=== PATIENT | female | born 1935 | race Caucasian/White ===

== ENCOUNTER 2018-07-13 17:16 | Inpatient (IN) | payer MEDICARE, OTHER ==
[2018-07-13] MEDS ORDERED: Ondansetron PF 4 MG/2 ML Vial ONE (17:26)
[2018-07-13] MEDS ORDERED: Rocuronium Bromide 10 MG/ML (10ML VIAL) ONE (17:37)
[2018-07-13 17:56] LABS: #Lymphocytes 0.9 thou/uL (1.20-3.40); #Monocytes 0.6 thou/uL (0.11-0.59); #Neutrophils 7.2 thou/uL (1.40-6.50); %Basophils 0.1 % (0.0-1.0); %Eosinophils 0.2 % (0.0-10.0); %Lymphocytes 10.2 % (21.0-51.0); %Monocytes 7.3 % (0.0-10.0); %Neutrophils 82.1 % (42.0-75.0); Hemoglobin 12.9 g/dL (12.0-16.0); Mean Corpuscular HGB CONC 31.4 g/dL (32.0-36.0); Mean Corpuscular Hemoglobin 29.1 pg (27.0-31.0); Mean Corpuscular Volume 92.5 fL (78.0-98.0); Mean Platelet Volume 9.1 fL (7.4-10.4); Platelet Count 144 thou/uL (130-400); RBC Distribution Width 13.1 % (11.5-14.5); Red Blood Cell (RBC) Count 4.45 mill/uL (4.20-5.40); White Blood Cell (WBC) Count 8.8 thou/uL (4.8-10.8)
[2018-07-13 18:02] LABS: INR-International Normal Ratio 1.3; Prothrombin Time 16.1 SEC (12.0-14.7)
[2018-07-13 18:03] LABS: PTT 30.1 SEC (22.9-36.1)
[2018-07-13 18:16] LABS: Magnesium 2.4 mg/dL (1.6-2.6); Phosphorus 3.3 mg/dL (2.3-4.7)
[2018-07-13 18:21] LABS: ALT (SGPT) 52 U/L (8-55); AST (SGOT) 27 U/L (5-34); Alkaline Phosphatase 156 U/L (40-150); Anion Gap 16 mmol/L (10-20); BUN (Urea Nitrogen) 37 mg/dL (9.8-20.1); Bilirubin, Total 1.2 mg/dL (0.2-1.2); Calc. Creatinine Clearance 0 mL/min (70-130); Calcium 9.3 mg/dL (7.8-10.44); Carbon Dioxide 25 mmol/L (23-31); Chloride 116 mmol/L (98-107); Estimated GFR-MDRD 46; Globulin 3.1 g/dL (2.4-3.5); Glucose 354 mg/dL (83-110); Lipase 50 U/L (8-78); Potassium 4.1 mmol/L (3.5-5.1); Protein, Total 7.1 g/dL (6.0-8.3); Sodium 153 mmol/L (136-145)
[2018-07-13 18:27] LABS: Bilirubin Small (Negative); Blood, Urine Trace (Negative); Clarity CLOUDY (Clear); Glucose, Urine (Dipstick) 500 mg/dL (Negative); Leukocyte Negative (Negative); Nitrite Negative (Negative); Protein, Urine (Dipstick) Trace mg/dL (Neg-Trace); Specific Gravity, Urine 1.026 (1.002-1.036)
[2018-07-13 18:29] LABS: Bacteria/HPF None Seen HPF (None Seen); RBC/HPF 0-3 HPF (0-3); WBC/HPF 0-3 HPF (0-3)
[2018-07-13] MEDS ORDERED: Piperacillin/Tazobactam 4.5 GM VIAL ONE (18:29)
[2018-07-13 18:31] LABS: Pathc Cast-AUWi Flag 26.16 (0-2.49)
[2018-07-13 18:36] LABS: Actual Bicarbonate (HCO3a) 23.8 mEq/L (22-28); Analyzer IN Cardio ER; Base Excess (BEa) -1.1 mEq/L (-2.0 to +3.0); CO2 Tension 40.5 mmHg (35.0-45.0); Calcium, Ionized 1.15 mmol/L (1.12-1.30); Carboxyhemoglobin (COHb) 0.2 gm% (0.0-3.0); Hemoglobin (Hb) 11.8 g/dL (12.0-16.0); O2 Tension (PaO2) 212.2 mmHg (> 60.0); Potassium - ABG Lab 3.62 mmol/L (3.70-5.30); pH, Arterial 7.39 (7.35-7.45)
[2018-07-13 18:43] LABS: Hyaline Casts/LPF 0-3 HYALINE CAST LPF (0-3 Hyaline); Other Casts/LPF None Seen LPF (0-3 Hyaline)
--- NOTE | 2018-07-13 18:45 | CT ---
CT OF BRAIN PERFORMED WITHOUT CONTRAST ENHANCEMENT: 07/13/18 HISTORY: Fall with head injury. Bruising to face. COMPARISON: A 05/02/09 study. There is generalized ventricular and sulcal prominence. There is no signs of intracerebral hemorrhage or extra-axial fluid collections. Chronic white matter changes are noted. Mastoid air cells are clear. There is mucosal disease within the right sphenoid air cells and some mi nimal changes of ethmoid air cells. Also minimal changes on the left side of the sphenoid air cells. IMPRESSION: No acute intracranial abnormalities. POS: [facility]
--- NOTE | 2018-07-13 18:48 | CT ---
CT OF CERVICAL SPINE PERFORMED WITHOUT CONTRAST ENHANCEMENT: 07/13/18 HISTORY: Fall with neck injury. The bones are demineralized. The vertebral bodies are normal in height. Degenerative osteophytes are seen without significant disc narrowing. Degenerative facet changes are present. No evidence of any s ignificant canal or foraminal stenosis. There is no CT evidence for fracture. Lung apices show emphys ematous change. IMPRESSION: No CT evidence of fracture of the cervical spine. POS: [facility]
--- NOTE | 2018-07-13 19:08 | RAD ---
PORTABLE CHEST: History: Post intubation. Comparison: 08-24-17 FINDINGS: Heart size is enlarged with post op sternotomy change and valve replacement. Endotracheal and NG tube s are in satisfactory position. There is somewhat asymmetric right parahilar and lower lobe parenchym al markings present. There are chronic lung changes also seen. IMPRESSION: 1. Cardiomegaly with chronic lung change. 2. Slightly increased parahilar markings on the right. This could indicate an asymmetric edema patter n or pneumonia. 3. Endotracheal and NG tubes in fairly satisfactory position. POS: [facility]
[2018-07-13] MEDS ORDERED: fentaNYL Citrate/PF 2,000 MCG in Sodium Chloride 0.9% 60 ML IV SCH (19:15)
[2018-07-13 19:27] LABS: ALV-art Gradient 93.675 (0-20); Puncture Site RRA
[2018-07-13] MEDS ORDERED: Fentanyl BOLUS 250 ML IVPB PRN (20:41)
[2018-07-13] MEDS ORDERED: Morphine 2 MG/ML SYRINGE SLOW IVP PRN (20:41)
[2018-07-13] MEDS ORDERED: Lorazepam 2 MG/ML VIAL SLOW IVP PRN (20:41)
[2018-07-13] MEDS ORDERED: Propofol BOLUS 1,000 MG/100 ML VIAL IV PRN (20:41)
[2018-07-13] MEDS ORDERED: Fentanyl CADD 250 ML IVPB SCH (20:41)
[2018-07-13] MEDS ORDERED: Propofol 1,000 MG/100 ML VIAL IV PRN (20:41)
[2018-07-13] MEDS: Sodium Chloride 0.9% 1,000 ML IV SCH (20:50)
[2018-07-13 21:18] VITALS: BMI 21.1
[2018-07-13] MEDS ORDERED: Ondansetron ODT 4 MG TAB PO PRN (22:48)
[2018-07-13] MEDS ORDERED: Acetaminophen 325 MG TAB PO PRN (22:48)
[2018-07-13] MEDS ORDERED: Ondansetron PF 4 MG/2 ML Vial IVP PRN (22:48)
[2018-07-13] MEDS ORDERED: Ventilator Sedation Protocol 1 EACH FS ONE (22:50)
[2018-07-14] MEDS: Piperacillin/Tazobactam 3.375 GM in Sodium Chloride 0.9% 100 ML IVPB SCH ×3 (02:07→17:48)
[2018-07-14] MEDS ORDERED: Dextrose 5% in Water 1,000 ML IV PRN (03:38)
[2018-07-14] MEDS ORDERED: HumaLOG 300 UNITS/3 ML VIAL SC PRN (03:38)
[2018-07-14] MEDS ORDERED: Dextrose 50% Abboject 50 ML SYRINGE SLOW IVP PRN (03:38)
[2018-07-14] MEDS: Sodium Chloride 0.9% 1,000 ML IV SCH (05:56)
[2018-07-14 06:10] LABS: Anion Gap 16 mmol/L (10-20); BUN (Urea Nitrogen) 35 mg/dL (9.8-20.1); Calc. Creatinine Clearance 44 mL/min (70-130); Calcium 8.4 mg/dL (7.8-10.44); Carbon Dioxide 19 mmol/L (23-31); Chloride 123 mmol/L (98-107); Estimated GFR-MDRD 60; Glucose 184 mg/dL (83-110); Potassium 4.1 mmol/L (3.5-5.1); Sodium 154 mmol/L (136-145)
[2018-07-14 06:15] LABS: #Eosinphils 0.1 thou/uL (0.0-0.7); #Lymphocytes 0.7 thou/uL (1.20-3.40); #Monocytes 0.8 thou/uL (0.11-0.59); #Neutrophils 7.3 thou/uL (1.40-6.50); %Basophils 0.2 % (0.0-1.0); %Eosinophils 0.6 % (0.0-10.0); %Lymphocytes 7.5 % (21.0-51.0); %Monocytes 9.2 % (0.0-10.0); %Neutrophils 82.6 % (42.0-75.0); Mean Corpuscular HGB CONC 31.7 g/dL (32.0-36.0); Mean Corpuscular Hemoglobin 29.2 pg (27.0-31.0); Mean Platelet Volume 9.3 fL (7.4-10.4); Platelet Count 95 thou/uL (130-400); Platelet Morphology Comment Appears Decreased; RBC Distribution Width 13.2 % (11.5-14.5); Red Blood Cell (RBC) Count 3.76 mill/uL (4.20-5.40); White Blood Cell (WBC) Count 8.8 thou/uL (4.8-10.8)
--- NOTE | 2018-07-14 07:08 | HP ---
PRIMARY CARE DOCTOR: Dr. Hoang Wolf. CODE STATUS: DNR. I discussed with at bedside. TIME OF EVALUATION: 11:15 p.m. CHIEF COMPLAINT: Change in mental status. HISTORY OF PRESENT ILLNESS: An 82-year-old female patient with past medical history of diabetes, also dementia, came from the [facility], as per her , he reported that the patient has been having gradual worsening change in the mentation, she was also found to have saturation up to 90%. Symptoms were severe, with no clear triggers, no alleviating factors. It seems that the patient has been aspirated, and he believes that she has been rather getting worse for the past 2 months, especially in the past week. Symptoms have been severe. REVIEW OF SYSTEMS: Unable to obtain. The patient is intubated and sedated. PAST MEDICAL HISTORY: Positive for previous stroke, hyperlipidemia, diabetes, Alzheimer's, and hypertension. SURGICAL HISTORY: Bypass. PSYCHIATRIC HISTORY: No history of suicidal ideation. No history of homicidal ideation. History of dementia. FAMILY HISTORY: Reviewed and noncontributory to current presentation. KNOWN ALLERGIES: No known drug allergies. REPORTED MEDICATIONS: 1. Fluoxetine. 2. Metoprolol. 3. . 4. Eliquis. 5. Klor-Con 10. 6. Memantine. 7. Rivastigmine. 8. Amiodarone. 9. Lovastatin. 10. Donepezil. 11. Furosemide. 12. Glipizide. 13. Losartan. PHYSICAL EXAMINATION: VITAL SIGNS: On presentation, blood pressure 172/107 with heart rate 66, respiratory rate was 18, the oxygen saturation was 93 on room air. GENERAL APPEARANCE: The patient is intubated and sedated. HEENT: Eyes, normal conjunctivae. Moist oral mucosa. Anicteric. No JVD. RESPIRATORY: Bilateral air entry. Scattered rales. Scattered wheezing. Symmetric expansion. CARDIOVASCULAR: Normal rate, regular rhythm. No murmurs. No gallops. No edema. ABDOMEN: Soft. Normal bowel sounds. MUSCULOSKELETAL: Baseline range of motion and strength. No tenderness. SKIN: Warm, intact. No pallor. No rash. No redness. Peripheral pulses are present. Capillary refill seems to be intact. NEURO: The patient is intubated and sedated. Unable to fully explore. IMAGING STUDIES: EKG was reviewed. The patient has sinus rhythm with first-degree AV block at a rate of 63, , QRS 114, QT corrected 501. No specific ST and T-wave abnormalities. Prolonged QT. Brain CT was done. The patient has no acute intracranial abnormalities. Chest x-ray was done. The patient has cardiomegaly with chronic lung changes. There is slightly increased perihilar markings of the right and they indicated asymmetric edema pattern or pneumonia. Endotracheal and NG tube are in fairly satisfactory position. Cervical spine CT; the patient has no evidence of fracture of the cervical spine. LABORATORY DATA: Labs were reviewed. The patient has white count 8.8, hemoglobin 12.9, MCV 92.5, platelet count 144. Coagulation; PT 16.1, INR 1.3, PTT 30.1. Blood gas, pH 7.39, pCO2 of 40.5, pO2 of 212. Chemistry; sodium 153, potassium 4.1, chloride 25, anion gap 16, BUN 37, creatinine 1.14, GFR 26, glucose 254. LFTs were normal. Alkaline phosphatase 156. Troponin was negative. Urine was done, was negative for white counts. ASSESSMENT AND PLAN: The patient will be placed in the hospital with following medical problems: 1. Pneumonia, possible aspiration secondary to gram-negative aerobes and anaerobes. The patient has been started on antibiotics that we will continue for now, we will adjust treatment as per sensitivity. 2. Acute hypoxic respiratory failure. The patient was intubated due to this problem. We will continue with ventilatory support. We will treat the underlying condition, may be secondary to pneumonia. 3. Acute encephalopathy. The patient has had change in mentation that has been gradually getting worse, especially over the past week, likely due to underlying infection, as of now she is intubated, this will need to be reassessed once patient is extubated. 4. Underlying dementia and these add bad prognosis to the patient's care and treatment, as per , the patient has continued to deteriorate progressively, especially over the past 2 months, if the patient does not recover well, would benefit from palliative care consultation. 5. Hypernatremia with sodium 153, this could be another reason for acute encephalopathy, the patient needed IV bolus resuscitation due to sepsis, we will adjust fluids once blood pressure is better controlled. 6. Hyperchloremia, we will adjust fluids. 7. Acute kidney injury. The patient has a GFR of 46 and creatinine 1.14. The patient might have had chronic kidney disease that we do not have a previous value to compare. We will monitor kidney function, we will adjust treatment as needed. 8. Uncontrolled diabetes. Glucose 254. As per her , she was not taking medications for diabetes on regular basis. We will place the patient on sliding scale. 9. Deep venous thrombosis prophylaxis. Critical care time more than 40 minutes spent at bedside, family counseling, and stabilization of the patient. Job ID: [id number]
[2018-07-14 07:28] LABS: Actual Bicarbonate (HCO3a) 22.1 mEq/L (22-28); Base Excess (BEa) -2.2 mEq/L (-2.0 to +3.0); CO2 Tension 36.2 mmHg (35.0-45.0); Calcium, Ionized 1.18 mmol/L (1.12-1.30); Carboxyhemoglobin (COHb) 1.2 gm% (0.0-3.0); Hemoglobin (Hb) 10.4 g/dL (12.0-16.0); Potassium - ABG Lab 3.45 mmol/L (3.70-5.30)
[2018-07-14 07:30] LABS: O2 Tension (PaO2) 59.8 mmHg (> 60.0); Puncture Site RR
--- NOTE | 2018-07-14 09:02 | CON ---
DATE OF CONSULTATION: HISTORY OF PRESENT ILLNESS: Julia Vazquez is an 82-year-old severely demented female, from the residential in [place]. I am told her primary care physician is at [facility]. She sees her Cardiology there too. She was here in the hospital in July of 2017. She came in last night with shortness of breath, abnormal chest x-ray, was intubated. Now in the ICU, on the vent. at the bedside, states as above. She sees physicians at [facility], but not in the last four years. She is in a residential, unable to talk and unable to walk now for several months. PAST MEDICAL HISTORY: Pertinent for well outlined congestive heart failure, coronary artery disease, status post bypass, severely demented, CVA with left-sided weakness, hypertension, diabetes, cardiac arrhythmias, advanced age. PREVIOUS SURGERIES: Including bypass surgery, aortic valve surgery. HOME MEDICATIONS: Include 1. Prozac 20. 2. Metoprolol 100. 3. Quetiapine 25. 4. Eliquis 2.5. 5. Potassium. It is unclear why she was intubated. But she received Fentanyl, vancomycin, Levaquin, Zosyn, zemuron, Amidate, and Zofran in the ER before she was intubated. REVIEW OF SYSTEMS: Unobtainable, in the ICU. PHYSICAL EXAMINATION: VITAL SIGNS: Pulse 59, blood pressure 124/80, sats 100% on the vent, respiratory rate 15. CHEST: Decreased breath sounds, no wheezing. CARDIAC: Normal S1 and S2. No gallops. ABDOMEN: No masses. DIAGNOSTIC DATA: White count 8000, H and H 11 and 34, platelet count is low 95,000. PO2 is 59, pCO2 is 36.40 on a rate of 15, 35%, PEEP of 5. Sodium 154, chloride 123. Urine is negative. X-ray shows right-sided infiltrate, cardiomegaly. She had a CT done of the neck, which did not show any fractures. She had a CT brain done which did not show any acute events. IMPRESSION: 1. Encephalopathic, metabolic. 2. Pneumonia. 3. Congestive heart failure. 4. Cerebrovascular accident. 5. Severe dementia. PLAN: Family brings in advanced directive. It is unclear what is in the advanced directive but apparently she is a DNR. She was started on antibiotics, neb treatments, supportive care. We will get input from Cardiology. Continue antibiotics. Await for the family decision. This is a 45-minute critical time. Job ID: [id number]
[2018-07-14] MEDS: Enoxaparin Sodium 40 MG/0.4 ML SYRINGE SC SCH (09:05)
[2018-07-14] MEDS: Famotidine/PF 20 mg/2ml Vial SLOW IVP SCH (09:05)
[2018-07-14] MEDS: Cefepime 1 GM in Sodium Chloride 0.9% 100 ML IVPB SCH ×2 (09:05→20:21)
[2018-07-14] MEDS: Sodium Chloride 0.45% 1,000 ML IV SCH ×2 (09:07→20:21)
[2018-07-14 15:30] VITALS: BP 95/80
--- NOTE | 2018-07-14 17:52 | PDOC.PN ---
- Subjective Encounter Start Date: 07/14/18 Encounter Start Time: 10:15 Ms. Vazquez was seen today in follow-up of aspiration pneumonia. She is intubated. He and daughters are at the bedside. He tells me she would have never wanted to be intubated. - Objective Resuscitation Status - Order Detail: 07/13/18 22:48 Resuscitation Status Routine Resuscitation Status: DNAR: NO Resuscitation Discussed with: as stated by at bedside MAR Reviewed: Yes Vital Signs & Weight: Vital Signs (12 hours) Temp Pulse Resp BP Pulse Ox 07/14/18 16:00 98.7 F 16 07/14/18 15:23 68 95/80 07/14/18 14:00 15 07/14/18 13:38 63 104/71 07/14/18 12:00 98.7 F 20 07/14/18 10:57 72 137/77 07/14/18 10:00 15 07/14/18 08:00 100.8 F H 15 94 L 07/14/18 07:55 59 L 07/14/18 06:00 15 Weight Admit Weight 126 lb Weight 126 lb 15.78 oz Most Recent Monitor Data Heart Rate from ECG 69 NIBP 107/65 NIBP BP-Mean 79 Respiration from ECG 18 SpO2 95 I&O: 07/13/18 07/14/18 07/15/18 06:59 06:59 06:59 Intake Total 2079 810 Output Total 221 300 Balance 1858 510 Result Diagrams: 07/14/18 05:08 07/14/18 05:09 Additional Labs: Accuchecks 07/14/18 07/14/18 07/13/18 12:14 06:25 17:39 POC Glucose 101 170 H 338 H Phys Exam - Physical Examination HEENT: PERRLA Respiratory: no wheezing, no rales, no rhonchi, clear to auscultation bilateral Cardiovascular: RRR, no significant murmur, no rub Gastrointestinal: soft, non-tender, no distention, positive bowel sounds Musculoskeletal: pulses present, edema present Dx/Plan (1) Aspiration pneumonia Code(s): J69.0 - PNEUMONITIS DUE TO INHALATION OF FOOD AND VOMIT Status: Acute (2) Acute respiratory failure with hypoxia Code(s): J96.01 - ACUTE RESPIRATORY FAILURE WITH HYPOXIA Status: Acute (3) Dementia Code(s): F03.90 - UNSPECIFIED DEMENTIA WITHOUT BEHAVIORAL DISTURBANCE Status: Chronic (4) Metabolic encephalopathy Code(s): G93.41 - METABOLIC ENCEPHALOPATHY Status: Acute - Plan * Aspiration pneumonia- continue Zosyn for now * Her is contemplating removing the patient from the ventilator * The palliative care team has arrived to discuss gaols of care further * Continue supportive care.
[2018-07-15] MEDS: Sodium Chloride 0.45% 1,000 ML IV SCH (02:49)
[2018-07-15] MEDS: Piperacillin/Tazobactam 3.375 GM in Sodium Chloride 0.9% 100 ML IVPB SCH (02:50)
[2018-07-15 05:40] LABS: #Lymphocytes 0.6 thou/uL (1.20-3.40); #Monocytes 0.6 thou/uL (0.11-0.59); #Neutrophils 6.9 thou/uL (1.40-6.50); %Eosinophils 0.4 % (0.0-10.0); %Lymphocytes 7.4 % (21.0-51.0); %Monocytes 7.2 % (0.0-10.0); Hemoglobin 9.8 g/dL (12.0-16.0); Mean Corpuscular HGB CONC 31.4 g/dL (32.0-36.0); Mean Corpuscular Hemoglobin 29.3 pg (27.0-31.0); Mean Corpuscular Volume 93.4 fL (78.0-98.0); Mean Platelet Volume 8.8 fL (7.4-10.4); Platelet Count 102 thou/uL (130-400); Red Blood Cell (RBC) Count 3.33 mill/uL (4.20-5.40); White Blood Cell (WBC) Count 8.1 thou/uL (4.8-10.8)
[2018-07-15 05:51] LABS: Anion Gap 13 mmol/L (10-20); BUN (Urea Nitrogen) 29 mg/dL (9.8-20.1); Calc. Creatinine Clearance 48 mL/min (70-130); Calcium 8.8 mg/dL (7.8-10.44); Carbon Dioxide 20 mmol/L (23-31); Chloride 124 mmol/L (98-107); Estimated GFR-MDRD 66; Glucose 129 mg/dL (83-110); Potassium 3.3 mmol/L (3.5-5.1); Sodium 154 mmol/L (136-145)
[2018-07-15 07:01] LABS: Actual Bicarbonate (HCO3a) 23.6 mEq/L (22-28); Base Excess (BEa) -0.5 mEq/L (-2.0 to +3.0); CO2 Tension 36.3 mmHg (35.0-45.0); Calcium, Ionized 1.28 mmol/L (1.12-1.30); Carboxyhemoglobin (COHb) 1.4 gm% (0.0-3.0); Hemoglobin (Hb) 9.7 g/dL (12.0-16.0); O2 Tension (PaO2) 60.3 mmHg (> 60.0); Potassium - ABG Lab 3.46 mmol/L (3.70-5.30); pH, Arterial 7.43 (7.35-7.45)
[2018-07-15 07:02] LABS: ALV-art Gradient 179.525 (0-20); Puncture Site RRA
--- NOTE | 2018-07-15 08:27 | RAD ---
PORTABLE CHEST: HISTORY: Shortness of breath. CCU followup. COMPARISON: 07/13/2018 FINDINGS: ET tube and NG tube remain in place. NG tube is just beyond the EG junction. There are diffuse hazy infiltrates throughout the right lung, and there is a more confluent infiltrat e in the left lower lung. Small bilateral effusions. Vascular congestion. IMPRESSION: Infiltrative changes have increased when compared to 07/13/2018. POS: [facility]
[2018-07-15 08:34] VITALS: TEMP 99.1
[2018-07-15] MEDS: Famotidine/PF 20 mg/2ml Vial SLOW IVP SCH (08:41)
[2018-07-15] MEDS: Enoxaparin Sodium 40 MG/0.4 ML SYRINGE SC SCH (08:41)
[2018-07-15] MEDS: Cefepime 1 GM in Sodium Chloride 0.9% 100 ML IVPB SCH (08:42)
--- NOTE | 2018-07-15 09:08 | PRG ---
DATE OF SERVICE: 07/15/2018 SUBJECTIVE: Julia Vazquez is an 82-year-old female. OBJECTIVE: VITAL SIGNS: This morning; pulse 77, saturations 92% on the vent, respiratory rate 25, blood pressure 108/64. I's and O's have been 2456 in and 2168 GENERAL: Minimally responsive. HEENT: Encephalopathic. CHEST: Extensive rhonchi and crackles, right greater than left. CARDIAC: Normal S1 and S2. No gallops. ABDOMEN: No masses. LABORATORY DATA: White count 8000, hemoglobin and hematocrit of 9 and 31, platelet count 102, decreased. A pO2 is 60, pCO2 of 41 ph 7.43 40%fio2 Lytes are normal. Sodium is still elevated at 154. DIAGNOSTIC DATA: X-ray now shows a left-sided subpulmonic pneumothorax, extensive right-sided pneumonia. IMPRESSION: Respiratory failure, pneumonia, congestive heart failure, hypertension, left pneumothorax, advanced age, and dementia. Family wants supportive care. They want comfort care. She is a DNR. They want to extubate her, which I agree. Otherwise, she is going to need left-sided chest tube. One-half hour of critical time. is at the bedside. Job ID: [id number] [facility]
[2018-07-15] MEDS ORDERED: Morphine 4 MG/ML VIAL SLOW IVP PRN (10:30)
[2018-07-15] MEDS ORDERED: Lorazepam 2 MG/ML VIAL SLOW IVP PRN (10:32)
--- NOTE | 2018-07-15 14:02 | PQF ---
CLINICAL DOCUMENTATION IMPROVEMENT CLARIFICATION FORM: ICD-10 Updated PLEASE DO AN ADDENDUM TO THE PROGRESS NOTE WITH ANY DOCUMENTATION UPDATES OR ADDITIONS AND CARRY THROUGH TO DC SUMMARY. THANK YOU. DATE: 07/15/18 ATTN : DR. QUINTERO Please exercise your independent, professional judgment in responding to the clarification form. Clinical indicators are provided on the bottom of this form for your review Please check appropriate box(s) to clarify if the following diagnosis has been ruled in or ruled out: SEPSIS [ ] Ruled in diagnosis [ ] Continue to treat [ ] Resolved [ ] Ruled out diagnosis [ ] Cannot rule out diagnosis [ ] Other diagnosis [ ] Unable to determine In addition, please specify: Present on Admission (POA): [ ] Yes [ ] No [ ] Unable to determine For continuity of documentation, please document condition throughout progress notes and discharge summary. Thank You. CLINICAL INDICATORS - SIGNS / SYMPTOMS / LABS H&P: "...THE PATIENT NEEDED IV BOLUS RESUSCITATION DUE TO SEPSIS..." CRITICORE TEMP 99.0 RISKS: ASPIRATION PNEUMONIA MULTIPLE COMORBIDITIES ADVANCED AGE TREATMENT: INTUBATION WITH MECHANICAL VENTILATION CRITICAL CARE MONITORING BLOOD CULTURES IV VANCOMYCIN (ER) IV ZOSYN (ER-07/15) IV MAXIPIME (07/14-07/15) IV LEVAQUIN (ER) [employer] (This form is maintained as a part of the permanent medical record) 2014 [employer]. All Rights Reserved [email or web address] [email or web address] Office: [phone] [facility]
--- NOTE | 2018-07-15 14:19 | PDOC.PN ---
- Subjective Encounter Start Date: 07/15/18 Encounter Start Time: 09:30 Ms. Vazquez was seen today in follow-up of aspiration pneumonia and sepsis. She was intubated at the time I saw her. Her was at the bedside. - Objective Resuscitation Status - Order Detail: 07/13/18 22:48 Resuscitation Status Routine Resuscitation Status: DNAR: NO Resuscitation Discussed with: as stated by at bedside MAR Reviewed: Yes Vital Signs & Weight: Vital Signs (12 hours) Temp Pulse Resp Pulse Ox 07/15/18 10:12 84 22 H 73 L 07/15/18 08:04 75 07/15/18 08:00 99.1 F 23 H 95 07/15/18 06:00 21 H 07/15/18 04:00 99.0 F 20 07/15/18 02:26 70 Weight Admit Weight 126 lb Weight 126 lb 15.78 oz Most Recent Monitor Data Heart Rate from ECG 63 NIBP 63/36 NIBP BP-Mean 45 Respiration from ECG 17 SpO2 45 I&O: 07/14/18 07/15/18 07/16/18 06:59 06:59 06:59 Intake Total 2079 2456 Output Total 221 935 130 Balance 1858 1521 -130 Result Diagrams: 07/15/18 04:24 07/15/18 04:24 Additional Labs: Accuchecks 07/15/18 07/14/18 07/14/18 05:20 20:24 17:43 POC Glucose 137 H 85 79 Phys Exam - Physical Examination HEENT: PERRLA Respiratory: no wheezing, no rales, no rhonchi, clear to auscultation bilateral Cardiovascular: RRR, no significant murmur, no rub Gastrointestinal: soft, non-tender, positive bowel sounds Musculoskeletal: no edema, pulses present Dx/Plan (1) Aspiration pneumonia Code(s): J69.0 - PNEUMONITIS DUE TO INHALATION OF FOOD AND VOMIT Status: Acute (2) Acute respiratory failure with hypoxia Code(s): J96.01 - ACUTE RESPIRATORY FAILURE WITH HYPOXIA Status: Acute (3) Dementia Code(s): F03.90 - UNSPECIFIED DEMENTIA WITHOUT BEHAVIORAL DISTURBANCE Status: Chronic (4) Metabolic encephalopathy Code(s): G93.41 - METABOLIC ENCEPHALOPATHY Status: Acute (5) Sepsis Code(s): A41.9 - SEPSIS, UNSPECIFIED ORGANISM Status: Acute - Plan * Aspiration Pneumonia with respiratory failure and sepsis- I have spoken with the patient's , and the plan is for terminal extubation around 10AM today * Medication will be available for pain, and air hunger.
--- NOTE | 2018-07-16 00:29 | DIS ---
DATE OF ADMISSION: 07/13/2018 DATE OF DISCHARGE: 07/15/2018 PRIMARY CARE PHYSICIAN: Dr. Hoang Wolf. DIAGNOSES: 1. Aspiration pneumonia. 2. Acute hypoxic respiratory failure, secondary to #1. 3. Sepsis, secondary to aspiration pneumonia. 4. Metabolic encephalopathy, secondary to #1. 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 6. Hypertension. 7. Diabetes mellitus type 2. 8. Dyslipidemia. HOSPITAL COURSE: Ms. Vazquez is an 82-year-old female, who came from the [facility]. Apparently, there, she was found to be hypoxic and having progressively worse mentation. She was brought to the emergency room, where she was evaluated. The patient was found to be in acute hypoxic respiratory failure and was intubated and placed on the ventilator. She was placed on broad-spectrum IV antibiotics and placed in the ICU. When the patient's arrived, he made it known that the patient had actually had a DNR status and order. He communicated that she would never want to be placed on a ventilator nor which she want any type of tube feeding. He contemplated taking her off the ventilator and life support. After discussing this with his other family members and giving himself time to think overnight, the following morning, he made a decision to go ahead and remove the patient from the ventilator. At the time, the alum plant supervisor and other family members were present. The patient was taken off life support and peacefully at 11:11 a.m. Job ID: [id number]
== END 2018-07-15 11:11 | disposition expired | DRG 871 ==
LOC: ERS 17:16 → EDBD 17:16 → CCU 20:20
PROVIDERS: ADMIT Emergency Medicine; ATTEND Emergency Medicine
PROC: 0BH17EZ Insertion of Endotracheal Airway into Trachea, Via Natural or Artificial Opening (ICD-10-PCS; principal; 2018-07-13)
PROC: 5A1945Z Respiratory Ventilation, 24-96 Consecutive Hours (ICD-10-PCS; 2018-07-13)
DX: A41.9 Sepsis, unspecified organism (principal); J69.0 Pneumonitis due to inhalation of food and vomit; J96.01 Acute respiratory failure with hypoxia; G93.41 Metabolic encephalopathy; I69.354 Hemiplegia and hemiparesis following cerebral infarction affecting left non-dominant side; E87.0 Hyperosmolality and hypernatremia; J93.9 Pneumothorax, unspecified; N17.9 Acute kidney failure, unspecified; G30.9 Alzheimer's disease, unspecified; F02.80 Dementia in other diseases classified elsewhere, unspecified severity, without behavioral disturbance, psychotic disturbance, mood disturbance, and anxiety; E11.65 Type 2 diabetes mellitus with hyperglycemia; E78.5 Hyperlipidemia, unspecified; I11.0 Hypertensive heart disease with heart failure; I25.10 Atherosclerotic heart disease of native coronary artery without angina pectoris; I50.9 Heart failure, unspecified; I44.0 Atrioventricular block, first degree; E87.8 Other disorders of electrolyte and fluid balance, not elsewhere classified; Z66 Do not resuscitate; Z79.01 Long term (current) use of anticoagulants; Z51.5 Encounter for palliative care; Z95.1 Presence of aortocoronary bypass graft
CPT/HCPCS: 31500; 36415; 36416; 51702; 70450; 71045; 72125; 80048; 80053; 81003; 81015; 82010; 82805; 83605; 83690; 83735; 84100; 84484; 85025; 85610; 85730; 87040; 93005; 94002; 94003; 96365; 96367; 96368; 96375; A4353; J0692; J1650; J1956; J2060; J2405; J2543; J3010; J3370; J7050; P9045; S0028